=== PATIENT | female | born 1975 | race Caucasian/White ===

== ENCOUNTER 2018-07-27 18:14 | Emergency (ER) | payer BC, MEDICAID ==
[~2018-07-27] VITALS: Ht 165.1 cm; Wt 73.0 kg
[2018-07-27 19:10] VITALS: BP 135/75
--- NOTE | 2018-07-27 20:29 | PHYS DOC ---
Past Medical History Past Medical History: No Pertinent History (MIKE HOLLAND APRN) Past Surgical History: Appendectomy, Cholecystectomy, Additional Past Surgical Histo: KIDNEY STONE. (MIKE HOLLAND APRN) Alcohol Use: Rarely Drug Use: None (MIKE HOLLAND APRN) Adult General Chief Complaint Chief Complaint: MECHANICAL FALL HPI HPI Patient is a 43-year-old female who presents after falling at 10 AM this morning. Patient missed a step and fell states her balance is 5 years old patient has a history of being deaf. Has lumbar pain and sacral tenderness. Rates her pain as 8 out of 10. States that the pain just feels weird . And radiates down both her legs. Deaf expression pole shaver helper used. (MIKE HOLALND APRN) Review of Systems Review of Systems Constitutional: Denies fever or chills [] Eyes: Denies change in visual acuity, redness, or eye pain [] HENT: Denies nasal congestion or sore throat [] Respiratory: Denies cough or shortness of breath [] Cardiovascular: No additional information not addressed in HPI [] GI: Denies abdominal pain, nausea, vomiting, bloody stools or diarrhea [] : Denies dysuria or hematuria [] Musculoskeletal: Reports back pain denies joint pain [] Integument: Denies rash or skin lesions [] Neurologic: Denies headache, focal weakness. Reports sensory changes down her legs.[] Endocrine: Denies polyuria or polydipsia [] Complete systems were reviewed and found to be within normal limits, except as documented in this note. (MIKE HOLLAND APRN) Current Medications Current Medications Current Medications Medications (Trade) Dose Ordered Sig/Kang Start Time Stop Time Status Last Admin Dose Admin Morphine Sulfate (Morphine Sulfate) 10 mg 1X ONCE 07/27/18 20:30 07/27/18 20:31 DC 07/27/18 20:29 10 MG Ondansetron HCl (Zofran Odt) 4 mg 1X ONCE 07/27/18 22:00 07/27/18 22:02 DC 07/27/18 22:14 4 MG Oxycodone/ Acetaminophen (Percocet 5/325) 1 tab 1X ONCE 07/27/18 22:00 07/27/18 22:01 DC 07/27/18 22:15 1 TAB (MIKE MARTÍNEZ DO) Allergies Allergies Allergies Coded Allergies Type Severity Reaction Last Updated Verified Penicillins Allergy Intermediate 07/27/18 Yes diphenhydramine Allergy Intermediate 07/27/18 Yes (MIKE MARTÍNEZ DO) Physical Exam Physical Exam Constitutional: Well developed, well nourished, no acute distress, non-toxic appearance. [] HENT: Normocephalic, atraumatic, bilateral external ears normal, oropharynx moist, no oral exudates, nose normal. [] Eyes: PERRLA, EOMI, conjunctiva normal, no discharge. [] Neck: Normal range of motion, no tenderness, supple, no stridor. [] Cardiovascular:Heart rate regular rhythm, no murmur [] Lungs & Thorax: Bilateral breath sounds clear to auscultation [] Abdomen: Bowel sounds normal, soft, no tenderness, no masses, no pulsatile masses. [] Skin: Warm, dry, no erythema, no rash. [] Back: Lumbar and sacral point tenderness no stepoffs. Extremities: No tenderness, no cyanosis, no clubbing, ROM intact, no edema. [] Neurologic: Alert and oriented X 3, normal motor function, normal sensory function, no focal deficits noted. [] Psychologic: Affect normal, judgement normal, mood normal. [] (MIKE HOLLAND APRN) Current Patient Data Vital Signs Vital Signs Date Time Temp Pulse Resp B/P (MAP) Pulse Ox O2 Delivery O2 Flow Rate FiO2 07/27/18 22:15 18 97 07/27/18 20:29 Room Air 07/27/18 19:10 98.3 79 135/75 (95) 98.3 (MIKE MARTÍNEZ DO) EKG EKG [] (MIKE HOLLAND APRN) Radiology/Procedures Radiology/Procedures []PATIENT: AUDRA BLOOM: [id number]#: [id number] : 1975 LOCATION: ER AGE: 43 SEX: F EXAM STATUS: REG ER ORD. PHYSICIAN: MIKE HOLLAND APRN REASON: PAIN TO LOWER BACK AFTER FALL DOWN STAIRS PROCEDURE: CT LUMBAR SPINE WO CONTRAST EXAM: Pelvis CT without contrast; lumbar spine CT without contrast. HISTORY: Fall. TECHNIQUE: Computed tomographic images of the pelvis and lumbar spine were obtained without contrast. *One or more of the following individualized dose reduction techniques were utilized for this examination: 1. Automated exposure control. 2. Adjustment of the mA and/or kV according to patient size. 3. Use of iterative reconstruction technique. COMPARISON: None. FINDINGS: Pelvis: There is a mild acute anterior superior endplate compression deformity at L5. There is no retropulsion of the cortex or fracture line extension to the posterior elements at this level. No additional fracture is seen. There is a disc bulge and mild left facet arthropathy at L4-L5 and there is a disc bulge and minimal facet arthropathy at L5-S1. No severe stenosis is seen. The femoral heads are normal in configuration. There is minimal superior acetabular spurring. There is a right os acetabulum or chronic fragmented osteophyte. There is vacuum phenomenon involving the sacroiliac joints. No suspicious lytic or sclerotic osseous lesion is seen. The visualized lower abdominal and pelvic visceral and vascular structures are unremarkable. There is no lymphadenopathy. Lumbar spine: There is a moderate acute wedge compression fracture of L2 with approximately 50 percent loss of vertebral body height. There is no retropulsion of the cortex or fracture line extension to the posterior elements at this level. There is a mild acute anterior superior endplate compression deformity at L5. There is no fracture line extension to the posterior elements or retropulsion of the cortex at this level. No additional fracture is seen. There is mild retrolisthesis of L4 and L5 and L5 on S1. There is mild endplate remodeling at multiple levels. No suspicious osseous lesion is seen. There is a 3.1 cm left renal cyst. There are mild disc bulges and there is facet arthropathy at multiple levels. No moderate or severe stenosis is seen. IMPRESSION: 1. Moderate acute wedge compression fracture of L2 and mild acute anterior superior endplate compression deformity at L5. 2. Mild bilateral hip osteoarthritis and degenerative change involving the lower lumbar spine. Electronically signed by: Tatiana Weinstein MD (07/27/2018 8:56 PM) [facility] PATIENT: IRENE BLOOM ACCOUNT: [id number] : 1975 LOCATION: ER AGE: 43 SEX: F EXAM STATUS: REG ER ORD. PHYSICIAN: MIKE HOLLAND APRN REASON: PAIN TO BOTTOM AFTER FALL DOWN STAIRS PROCEDURE: CT PELVIS WO CONTRAST EXAM: Pelvis CT without contrast; lumbar spine CT without contrast. HISTORY: Fall. TECHNIQUE: Computed tomographic images of the pelvis and lumbar spine were obtained without contrast. *One or more of the following individualized dose reduction techniques were utilized for this examination: 1. Automated exposure control. 2. Adjustment of the mA and/or kV according to patient size. 3. Use of iterative reconstruction technique. COMPARISON: None. FINDINGS: Pelvis: There is a mild acute anterior superior endplate compression deformity at L5. There is no retropulsion of the cortex or fracture line extension to the posterior elements at this level. No additional fracture is seen. There is a disc bulge and mild left facet arthropathy at L4-L5 and there is a disc bulge and minimal facet arthropathy at L5-S1. No severe stenosis is seen. The femoral heads are normal in configuration. There is minimal superior acetabular spurring. There is a right os acetabulum or chronic fragmented osteophyte. There is vacuum phenomenon involving the sacroiliac joints. No suspicious lytic or sclerotic osseous lesion is seen. The visualized lower abdominal and pelvic visceral and vascular structures are unremarkable. There is no lymphadenopathy. Lumbar spine: There is a moderate acute wedge compression fracture of L2 with approximately 50 percent loss of vertebral body height. There is no retropulsion of the cortex or fracture line extension to the posterior elements at this level. There is a mild acute anterior superior endplate compression deformity at L5. There is no fracture line extension to the posterior elements or retropulsion of the cortex at this level. No additional fracture is seen. There is mild retrolisthesis of L4 and L5 and L5 on S1. There is mild endplate remodeling at multiple levels. No suspicious osseous lesion is seen. There is a 3.1 cm left renal cyst. There are mild disc bulges and there is facet arthropathy at multiple levels. No moderate or severe stenosis is seen. IMPRESSION: 1. Moderate acute wedge compression fracture of L2 and mild acute anterior superior endplate compression deformity at L5. 2. Mild bilateral hip osteoarthritis and degenerative change involving the lower lumbar spine. Electronically signed by: Tatiana Weinstein MD (07/27/2018 8:56 PM) [facility] (MIKE HOLLAND APRN) Course & Med Decision Making Course & Med Decision Making Pertinent Labs and Imaging studies reviewed. (See chart for details) Will order CT and pain medication. Patient is agreeable. Imaging shows L2 and L5 fractures. Offered admission to patient and patient declined deciding that she would rather attempt out patient management. (MIKE HOLLAND APRN) Dragon Disclaimer Dragon Disclaimer This electronic medical record was generated, in whole or in part, using a voice recognition dictation system. (MIKE HOLLAND APRN) Departure Departure Impression: Primary Impression: Lumbar compression fracture Disposition: HOME, SELF-CARE Condition: STABLE Referrals: NO PCP (PCP) EFRAIN HERNANDEZ MD Patient Instructions: Lumbar Fracture Additional Instructions: Please follow up with an Orthopedic doctor and pain management doctor as well as your primary care doctor in [place]. Take ibuprofen as needed for pain and follow the label instructions. Take Percocet for breakthrough pain. If it makes you nauseous take Ondansetron. Scripts Ondansetron (ONDANSETRON ODT) 4 Mg Tab.rapdis 1 TAB PO PRN Q6-8HRS PRN for NAUSEA, #16 TAB Prov: MIKE HOLLAND APRN 07/27/18 Oxycodone/Apap 5-325 (PERCOCET 5-325 MG TABLET ) 1 Each Tablet 1 TAB PO PRN Q6HRS PRN for PAIN, #10 TAB 0 Refills Prov: MIKE HOLLAND APRN 07/27/18 Attending Signature Attending Signature I have reviewed the PA/VOIP TECHNICIAN's note and plan of care. I was available for consultation as needed during the patient's visit in the emergency department. I agree with the clinical impression, plan, and disposition. (MIKE MARTÍNEZ DO) Problem Qualifiers Primary Impression: Lumbar compression fracture Encounter type: initial encounter Lumbar vertebra fracture level: L5 Fracture type: closed Qualified Codes: S32.050A - Wedge compression fracture of fifth lumbar vertebra, initial encounter for closed fracture MIKE HOLLAND APRN July 27, 2018 20:29 MIKE MARTÍNEZ DO July 28, 2018 05:32
[2018-07-27] MEDS ORDERED: MORPHINE SULFATE 10 MG/ML VIAL. IM ONE (20:30)
--- NOTE | 2018-07-27 20:59 | RAD ---
EXAM: Pelvis CT without contrast; lumbar spine CT without contrast. HISTORY: Fall. TECHNIQUE: Computed tomographic images of the pelvis and lumbar spine were obtained without contrast. *One or more of the following individualized dose reduction techniques were utilized for this examination: 1. Automated exposure control. 2. Adjustment of the mA and/or kV according to patient size. 3. Use of iterative reconstruction technique. COMPARISON: None. FINDINGS: Pelvis: There is a mild acute anterior superior endplate compression deformity at L5. There is no retropulsion of the cortex or fracture line extension to the posterior elements at this level. No additional fracture is seen. There is a disc bulge and mild left facet arthropathy at L4-L5 and there is a disc bulge and minimal facet arthropathy at L5-S1. No severe stenosis is seen. The femoral heads are normal in configuration. There is minimal superior acetabular spurring. There is a right os acetabulum or chronic fragmented osteophyte. There is vacuum phenomenon involving the sacroiliac joints. No suspicious lytic or sclerotic osseous lesion is seen. The visualized lower abdominal and pelvic visceral and vascular structures are unremarkable. There is no lymphadenopathy. Lumbar spine: There is a moderate acute wedge compression fracture of L2 with approximately 50 percent loss of vertebral body height. There is no retropulsion of the cortex or fracture line extension to the posterior elements at this level. There is a mild acute anterior superior endplate compression deformity at L5. There is no fracture line extension to the posterior elements or retropulsion of the cortex at this level. No additional fracture is seen. There is mild retrolisthesis of L4 and L5 and L5 on S1. There is mild endplate remodeling at multiple levels. No suspicious osseous lesion is seen. There is a 3.1 cm left renal cyst. There are mild disc bulges and there is facet arthropathy at multiple levels. No moderate or severe stenosis is seen. IMPRESSION: 1. Moderate acute wedge compression fracture of L2 and mild acute anterior superior endplate compression deformity at L5. 2. Mild bilateral hip osteoarthritis and degenerative change involving the lower lumbar spine. Electronically signed by: Tatiana Weinstein MD (07/27/2018 8:56 PM) [facility]
[2018-07-27] MEDS ORDERED: OXYC1TAB15 PO (21:58)
[2018-07-27] MEDS ORDERED: ONDA4TAB12 PO (21:58)
[2018-07-27] MEDS ORDERED: ONDANSETRON ODT 4 MG TAB.RAPDIS. PO ONE (22:00)
[2018-07-27] MEDS ORDERED: oxyCODONE/APAP 5/325 1 TAB TABLET PO ONE (22:00)
== END 2018-07-27 22:15 | disposition home or self-care (01) ==
LOC: ER 18:14
DX: S32.050A Wedge compression fracture of fifth lumbar vertebra, initial encounter for closed fracture (principal); M79.604 Pain in right leg; M79.605 Pain in left leg; Z90.89 Acquired absence of other organs; Z90.49 Acquired absence of other specified parts of digestive tract; Z87.442 Personal history of urinary calculi; Z88.0 Allergy status to penicillin; Z88.5 Allergy status to narcotic agent; W10.8XXA Fall (on) (from) other stairs and steps, initial encounter; Y93.89 Activity, other specified; Y92.89 Other specified places as the place of occurrence of the external cause; Y99.8 Other external cause status
CPT/HCPCS: 72131; 72192; 96372; 99284; J2270; Q0162

== ENCOUNTER 2018-08-03 17:29 | Inpatient (IN) | payer MEDICAID, SELFPAY ==
[~2018-08-03] VITALS: Ht 165.1 cm; Wt 73.0 kg
[~2018-08-03 17:29] MED LIST: ONDA4TAB12 PO; OXYC1TAB15 PO
[2018-08-03] MEDS ORDERED: IV NORMAL SALINE 1000ML BAG 1,000 ML IV ONE (18:30)
[2018-08-03] MEDS ORDERED: fentaNYL PF VIAL 100 MCG/2 ML VIAL IV ONE (18:30)
[2018-08-03] MEDS ORDERED: ONDANSETRON PF 4 MG/2 ML VIAL. IV ONE (18:30)
[2018-08-03 18:47] LABS: BILIRUBIN,URINE NEGATIVE (NEG); CLARITY,URINE CLEAR; COLOR,URINE YELLOW; NITRITE,URINE NEGATIVE (NEG); PROTEIN,URINE NEGATIVE (NEG-TRACE)
[2018-08-03 19:15] LABS: BACTERIA,URINE FEW /HPF (0-FEW); HYALINE CASTS, URINE MODERATE /HPF; RBC,URINE 20-40 /HPF (0-2); SQUAMOUS EPITHELIAL CELL,UR FEW /LPF; WBC,URINE OCC /HPF (0-4); YEAST,URINE PRESENT /HPF
[2018-08-03] MEDS ORDERED: MORPHINE SULFATE 4 MG/ML VIAL. ONE (20:10)
[2018-08-03] MEDS ORDERED: MORPHINE SULFATE 4 MG/ML VIAL. IV ONE ×2 (20:30→22:15)
[2018-08-03 20:39] LABS: BASO % 1 % (0-3); EOS # 0.1 x10^3/uL (0.0-0.7); EOS % 2 % (0-3); HEMATOCRIT 43.6 % (36.0-47.0); HEMOGLOBIN 14.5 g/dL (12.0-15.5); LYMPH # 1.7 x10^3/uL (1.0-4.8); LYMPH % 26 % (24-48); MEAN CORPUSCULAR HEMOGLOBIN 31 pg (25-35); MEAN CORPUSCULAR HGB CONC 33 g/dL (31-37); MEAN CORPUSCULAR VOLUME 92 fL (79-100); MONO # 0.3 x10^3/uL (0.0-1.1); MONO % 4 % (0-9); NEUT # 4.5 x10^3uL (1.8-7.7); NEUT % 68 % (31-73); PLATELET COUNT 272 x10^3/uL (140-400); RED BLOOD COUNT 4.74 x10^6/uL (3.50-5.40); RED CELL DISTRIBUTION WIDTH 14.4 % (11.5-14.5); WHITE BLOOD COUNT 6.7 x10^3/uL (4.0-11.0)
[2018-08-03 20:49] LABS: CREATININE 0.7 mg/dL (0.6-1.0); GFR 90.5; POTASSIUM 3.9 mmol/L (3.5-5.1)
[2018-08-03 20:55] LABS: ALBUMIN 3.7 g/dL (3.4-5.0); TOTAL BILIRUBIN 0.4 mg/dL (0.2-1.0); TOTAL PROTEIN 7.4 g/dL (6.4-8.2)
[2018-08-03 21:24] LABS: BARBITURATES NEG (NEG); BENZODIAZEPINES POS (NEG); CANNABINOIDS NEG (NEG); COCAINE NEG (NEG); METHADONE NEG (NEG); OPIATES POS (NEG); PHENCYCLIDINE NEG (NEG)
[2018-08-03 21:25] LABS: AMPHETAMINE/METHAMPHETAMINE NEG (NEG)
--- NOTE | 2018-08-03 22:24 | RAD ---
MRI of the lumbar spine without contrast 08/03/2018 CLINICAL HISTORY: Bowel/bladder incontinence. Lumbar compression fractures. TECHNIQUE: Unenhanced T1-weighted, T2-weighted and inversion recovery sagittal and T1-weighted and T2-weighted axial images of the lumbar spine were obtained. FINDINGS: Comparison is made to the patient's CT scan lumbar spine dated 07/27/2018. Images from the study are degraded by patient motion. Minimal S-shaped curvature of the thoracolumbar spine is seen. Acute compression fractures are again seen involving these aspect of the L2 and L5 vertebral bodies. No retropulsion of bone fragments into the central spinal canal is seen. Degenerative signal changes are seen involving the L1-2, L2-3 and L4-5 discs. Degenerative signal changes are seen within the marrow surrounding these discs. The conus medullaris is normal morphology, position, and signal characteristics. The changes of degenerative disc disease are seen on the axial images throughout the lumbar disc spaces. These consist of mild to moderate generalized disc bulges and degenerative changes involving the facet joints along with mild to moderate ligamentum flavum hypertrophy and prominence of posterior epidural fat. These findings do not result in areas of significant central spinal canal or neural foraminal stenosis. IMPRESSION: 1. Acute compression fractures are again seen involving the L2 and L5 vertebral bodies. No retropulsion of bone fragments into the central spinal canal is seen. 2. The conus medullaris is normal morphology, position, and signal characteristics. No impingement is seen. 3. The changes of degenerative disc disease are seen throughout the lumbar spine. These findings do not result in significant central spinal canal or neural foraminal stenosis. Electronically signed by: Attila Sullivan MD (08/03/2018 10:22 PM) [facility]
--- NOTE | 2018-08-03 23:29 | RAD ---
CT scan of the abdomen and pelvis without contrast 08/03/2018 CLINICAL HISTORY: History of flank pain. TECHNIQUE: Unenhanced, contiguous, 2 mm axial sections were obtained through the abdomen and pelvis. One or more of the following individualized dose reduction techniques were utilized for this study: 1. Automated exposure control. 2. Adjustment of the mA and/or kV according to patient size. 3. Use of iterative reconstruction technique. FINDINGS: Comparison study is dated 07/27/2018. Images through the lung bases demonstrate minimal dependent subsegmental atelectasis bilaterally. The liver, spleen, pancreas, and adrenal glands are within normal limits. No renal or ureteral calculus is seen. A 3.1 cm rounded low-attenuation lesion is seen involving the superior pole of the left kidney. This likely represents a cyst. Atherosclerotic calcification of the abdominal aorta is seen. The abdominal aorta tapers normally. Surgical clips are seen within the gallbladder fossa consistent with a cholecystectomy. No free fluid or free air is within the abdomen. There is no evidence of bowel obstruction. Air and stool is seen throughout the colon. Surgical clips are seen posterior to the cecum consistent with an appendectomy. Images through the pelvis demonstrate the urinary bladder distended with urine. No adnexal mass is seen. No free fluid is noted. The osseous structures are unchanged. Comminuted compression fractures of the superior aspect of the L5 and L2 vertebral bodies are again seen. IMPRESSION: No acute abnormality is seen. Electronically signed by: Attila Sullivan MD (08/03/2018 11:26 PM) [facility]
--- NOTE | 2018-08-03 23:32 | PHYS DOC ---
Past Medical History Past Medical History: Anxiety, Kidney Stone, Other Additional Past Medical Histor: BACK FX,BACK PAIN, menopause past 5yrs (DEANDRE SPENCER APRN) Past Surgical History: Appendectomy, Cholecystectomy, Additional Past Surgical Histo: KIDNEY STONE,D&C X 2 (DEANDRE SPENCER APRN) Smoking: Cigarettes, Less than 1pk/day Additional Information: 0.5 PPD Alcohol Use: Rarely Drug Use: None (DEANDRE SPENCER APRN) Adult General Chief Complaint Chief Complaint: BACK PAIN OR INJURY HPI HPI 43-year-old female presents to ER for complaints of ongoing low mid back pain- was evaluated in the ER on 07/27/18 diagnosed with L2 and L5 compression fractures. Patient reports she has had incontinence of bowel and bladder since that last ER visit. Patient states she has increased pain with walking denies inability to walk. Patient denies swelling in extremities. Patient denies u rinary symptoms, fever, or bloody stools. Pt is deaf and initial communication was with paper/pen. bead maker services were called and will send someone to ER for communication. (DEANDRE SPENCER APRN) Review of Systems Review of Systems Constitutional: Denies fever or chills [] Eyes: Denies change in visual acuity, redness, or eye pain [] HENT: Denies nasal congestion or sore throat [] Respiratory: Denies cough or shortness of breath [] Cardiovascular: No additional information not addressed in HPI [] GI: Denies abdominal pain, nausea, vomiting, bloody stools or diarrhea [] : Denies dysuria or hematuria. Reports incontinence of bowel/bladder Musculoskeletal: Denies joint pain. Reports low back pain into coccyx Integument: Denies rash or skin lesions [] Neurologic: Denies headache, focal weakness or sensory changes. Denies dizziness Endocrine: Denies polyuria or polydipsia [] All other systems were reviewed and found to be within normal limits, except as documented in this note. (DEANDRE SPENCER APRN) Current Medications Current Medications Current Medications Medications (Trade) Dose Ordered Sig/Kang Start Time Stop Time Status Last Admin Dose Admin Fentanyl Citrate (Fentanyl 2ml Vial) 50 mcg 1X ONCE 08/03/18 18:30 08/03/18 18:31 DC Lorazepam (Ativan) 2 mg STK-MED ONCE 5/14/19 21:07 08/03/18 21:08 DC Morphine Sulfate (Morphine Sulfate) 4 mg 1X ONCE 08/03/18 22:15 08/03/18 22:16 DC 08/03/18 22:40 4 MG Ondansetron HCl (Zofran) 4 mg 1X ONCE 08/03/18 18:30 08/03/18 18:31 DC Sodium Chloride 1,000 ml @ 1,000 mls/hr 1X ONCE 08/03/18 18:30 08/03/18 19:29 DC 08/03/18 20:29 1,000 MLS/HR (EDD MORALES MD) Allergies Allergies Allergies Coded Allergies Type Severity Reaction Last Updated Verified Penicillins Allergy Intermediate 07/27/18 Yes diphenhydramine Allergy Intermediate 07/27/18 Yes fentanyl Allergy Intermediate hives 08/03/18 Yes (EDD MORALES MD) Physical Exam Physical Exam Constitutional: Well developed, well nourished, no acute distress, non-toxic appearance. [] HENT: Normocephalic, atraumatic, bilateral ears normal, oropharynx moist, nose normal. [] Eyes: PERRLA, no nystagmus, conjunctiva normal, no discharge. [] Neck: Normal range of motion, no tenderness, supple, no stridor. [] Cardiovascular: Heart rate regular rhythm, no murmur [] Lungs & Thorax: Bilateral breath sounds clear to auscultation- resp. equal/nonlabored Abdomen: Bowel sounds normal, soft, no tenderness, no masses, no pulsatile masses. [] Skin: Warm, dry, no erythema, no rash. [] Back: Tender mid lumbar spine- no palp. deformity/crepitus- no skin discoloration, no CVA tenderness. [] Extremities: No tenderness, no cyanosis, no clubbing, ROM intact lateral lower and upper extremities, no edema. 2+ bilateral dorsalis pedis and posterior tibial. Neurologic: Alert and oriented X 3, normal motor function, normal sensory function, no focal deficits noted. [] Psychologic: Affect normal, judgement normal, mood anxious-no uncontrollable behavior and cooperative during exam. (FILITDEANDRE APRN) Current Patient Data Vital Signs Vital Signs Date Time Temp Pulse Resp B/P (MAP) Pulse Ox O2 Delivery O2 Flow Rate FiO2 08/03/18 22:40 22 96 08/03/18 22:13 78 124/90 (101) Room Air 08/03/18 17:39 98.2 98.2 (EDD MORALES MD) Lab Values Laboratory Tests Test 08/03/18 18:30 08/03/18 18:39 08/03/18 20:25 Urine Collection Type Unknown Urine Color Yellow Urine Clarity Clear Urine pH 6.0 Urine Specific [place] 1.020 Urine Protein Negative mg/dL (NEG-TRACE) Urine Glucose (UA) Negative mg/dL (NEG) Urine Ketones (Stick) Negative mg/dL (NEG) Urine Blood Large (NEG) Urine Nitrite Negative (NEG) Urine Bilirubin Negative (NEG) Urine Urobilinogen Dipstick 1.0 mg/dL (0.2 mg/dL) Urine Leukocyte Esterase Negative (NEG) Urine RBC 20-40 /HPF (0-2) Urine WBC Occ /HPF (0-4) Urine Squamous Epithelial Cells Few /LPF Urine Bacteria Few /HPF (0-FEW) Urine Hyaline Casts Moderate /HPF Urine Mucus Marked /LPF Urine Yeast Present /HPF Urine Opiates Screen Pos (NEG) Urine Methadone Screen Neg (NEG) Urine Barbiturates Neg (NEG) Urine Phencyclidine Screen Neg (NEG) Urine Amphetamine/Methamphetamine Neg (NEG) Urine Benzodiazepines Screen Pos (NEG) Urine Cocaine Screen Neg (NEG) Urine Cannabinoids Screen Neg (NEG) Urine Ethyl Alcohol Neg (NEG) POC Urine HCG, Qualitative Hcg negative (Negative) White Blood Count 6.7 x10^3/uL (4.0-11.0) Red Blood Count 4.74 x10^6/uL (3.50-5.40) Hemoglobin 14.5 g/dL (12.0-15.5) Hematocrit 43.6 % (36.0-47.0) Mean Corpuscular Volume 92 fL (79-100) Mean Corpuscular Hemoglobin 31 pg (25-35) Mean Corpuscular Hemoglobin Concent 33 g/dL (31-37) Red Cell Distribution Width 14.4 % (11.5-14.5) Platelet Count 272 x10^3/uL (140-400) Neutrophils (%) (Auto) 68 % (31-73) Lymphocytes (%) (Auto) 26 % (24-48) Monocytes (%) (Auto) 4 % (0-9) Eosinophils (%) (Auto) 2 % (0-3) Basophils (%) (Auto) 1 % (0-3) Neutrophils # (Auto) 4.5 x10^3uL (1.8-7.7) Lymphocytes # (Auto) 1.7 x10^3/uL (1.0-4.8) Monocytes # (Auto) 0.3 x10^3/uL (0.0-1.1) Eosinophils # (Auto) 0.1 x10^3/uL (0.0-0.7) Basophils # (Auto) 0.0 x10^3/uL (0.0-0.2) Sodium Level 143 mmol/L (136-145) Potassium Level 3.9 mmol/L (3.5-5.1) Chloride Level 106 mmol/L (98-107) Carbon Dioxide Level 26 mmol/L (21-32) Anion Gap 11 (6-14) Blood Urea Nitrogen 6 mg/dL (7-20) L Creatinine 0.7 mg/dL (0.6-1.0) Estimated GFR (Cockcroft-Gault) 90.5 BUN/Creatinine Ratio 9 (6-20) Glucose Level 107 mg/dL (70-99) H Calcium Level 10.0 mg/dL (8.5-10.1) Total Bilirubin 0.4 mg/dL (0.2-1.0) Aspartate Amino Transferase (AST) 10 U/L (15-37) L Alanine Aminotransferase (ALT) 16 U/L (14-59) Alkaline Phosphatase 76 U/L (46-116) Total Protein 7.4 g/dL (6.4-8.2) Albumin 3.7 g/dL (3.4-5.0) Albumin/Globulin Ratio 1.0 (1.0-1.7) Ethyl Alcohol Level < 10 mg/dL (0-10) Laboratory Tests 08/03/18 20:25 Laboratory Tests 08/03/18 20:25 (EDD MORALES MD) EKG EKG [] (DEANDRE SPENCER APRN) Radiology/Procedures Radiology/Procedures PROCEDURE: LUMBAR SPINE WO CONTRAST MRI of the lumbar spine without contrast 08/03/2018 CLINICAL HISTORY: Bowel/bladder incontinence. Lumbar compression fractures. TECHNIQUE: Unenhanced T1-weighted, T2-weighted and inversion recovery sagittal and T1-weighted and T2-weighted axial images of the lumbar spine were obtained. FINDINGS: Comparison is made to the patient's CT scan lumbar spine dated 07/27/2018. Images from the study are degraded by patient motion. Minimal S-shaped curvature of the thoracolumbar spine is seen. Acute compression fractures are again seen involving these aspect of the L2 and L5 vertebral bodies. No retropulsion of bone fragments into the central spinal canal is seen. Degenerative signal changes are seen involving the L1-2, L2-3 and L4-5 discs. Degenerative signal changes are seen within the marrow surrounding these discs. The conus medullaris is normal morphology, position, and signal characteristics. The changes of degenerative disc disease are seen on the axial images throughout the lumbar disc spaces. These consist of mild to moderate generalized disc bulges and degenerative changes involving the facet joints along with mild to moderate ligamentum flavum hypertrophy and prominence of posterior epidural fat. These findings do not result in areas of significant central spinal canal or neural foraminal stenosis. IMPRESSION: 1. Acute compression fractures are again seen involving the L2 and L5 vertebral bodies. No retropulsion of bone fragments into the central spinal canal is seen. 2. The conus medullaris is normal morphology, position, and signal characteristics. No impingement is seen. 3. The changes of degenerative disc disease are seen throughout the lumbar spine. These findings do not result in significant central spinal canal or neural foraminal stenosis. Electronically signed by: Attila Sullivan MD (08/03/2018 10:22 PM) [facility] DICTATED and SIGNED BY: ATTILA SULLIVAN MD DATE: 08/03/18 2222 PROCEDURE: CT ABDOMEN PELVIS WO CONTRAST CT scan of the abdomen and pelvis without contrast 08/03/2018 CLINICAL HISTORY: History of flank pain. TECHNIQUE: Unenhanced, contiguous, 2 mm axial sections were obtained through the abdomen and pelvis. One or more of the following individualized dose reduction techniques were utilized for this study: 1. Automated exposure control. 2. Adjustment of the mA and/or kV according to patient size. 3. Use of iterative reconstruction technique. FINDINGS: Comparison study is dated 07/27/2018. Images through the lung bases demonstrate minimal dependent subsegmental atelectasis bilaterally. The liver, spleen, pancreas, and adrenal glands are within normal limits. No renal or ureteral calculus is seen. A 3.1 cm rounded low-attenuation lesion is seen involving the superior pole of the left kidney. This likely represents a cyst. Atherosclerotic calcification of the abdominal aorta is seen. The abdominal aorta tapers normally. Surgical clips are seen within the gallbladder fossa consistent with a cholecystectomy. No free fluid or free air is within the abdomen. There is no evidence of bowel obstruction. Air and stool is seen throughout the colon. Surgical clips are seen posterior to the cecum consistent with an appendectomy. Images through the pelvis demonstrate the urinary bladder distended with urine. No adnexal mass is seen. No free fluid is noted. The osseous structures are unchanged. Comminuted compression fractures of the superior aspect of the L5 and L2 vertebral bodies are again seen. IMPRESSION: No acute abnormality is seen. Electronically signed by: Attila Sullivan MD (08/03/2018 11:26 PM) [facility] DICTATED and SIGNED BY: ATTILA SULLIVAN MD DATE: 08/03/182325 ([facility]authier APRN) Course & Med Decision Making Course & Med Decision Making Pertinent Labs and Imaging studies reviewed. (See chart for details) On initial exam patient reported she had had incontinence of bowel and bladder- with recent ER visit for L2 and L5 compression fractures. Patient reported intractable lower back pain and so MRI of lumbar spine was ordered to rule out cauda equina. Patient was ambulatory into the ER per RN with steady unassisted gait. 2010: Rectal exam complete- good rectal tone. Patient was able to reposition herself onto her left side. No external hemorrhoids or lesions on exam. No gross blood. Patient repositioned herself back to supine position. Patient had full range of motion of bilateral lower extremities. Patient has had no incontinence while in the ER. 0: Spoke with Dr. Huddleston regarding patient's case and admission plan. He is wanting neurosurgery spoken with prior to admission as neurosurgery will not be available eating tomorrow. Will wait for MRI results and then speak with Dr. Coles who is on-call for neurosurgery. 8: Spoke with MARY Altman with Dr. Coles, neurosurg. Discussed patient's case and MRI results- requested Dr. Coles view patient's MRI prior to being admitted to [facility] as there will be no neurosurgery coverage starting tomorrow. She will talk to Dr. Coles and call back. [id number]: Spoke with Anupama [employer] again with Dr. Coles who did view patient's MRI. Per Anupama patient can be admitted to hospitalist services as her MRI is stable and will not require neurosurgery intervention. She requested we consult Dr. Granados for evaluation of patient and to be involved with patient's care. Patient was evaluated in the ER for complaints of intractable lower back pain with reports of incontinence of bowel and bladder. It had been evaluated on 07/27 for a fall and was found to have L2 and L5 compression fractures. MRI was obtained while in the ER and no findings of central spinal canal or neural foraminal stenosis. Patient while in the ER received IV pain and anxiety medicine. Patient remained PMS intact in all extremities. Patient had good rectal tone on exam and had full range of motion of all extremities. Pt had no incontinence of bowel or bladder while in the ER. Patient did have large blood in her urine and reported history of kidney stones so did obtain CT abdomen and pelvis with no acute findings reported. She was admitted to hospitalist services for further care and monitoring. (DEANDRE SPENCER APRN) Course & Med Decision Making Staff Physician Addendum: I was working in the ER during the course of this patient's visit. I was available for consultation as needed, but I was not directly involved in the care of this patient. (EDD MORALES MD) Dragon Disclaimer Dragon Disclaimer This electronic medical record was generated, in whole or in part, using a voice recognition dictation system. (DEANDRE SPENCER APRN) Departure Departure Impression: Primary Impression: Intractable back pain Additional Impression: Lumbar compression fracture Disposition: 09 ADMITTED INPATIENT Admitting Physician: Nya Huddleston (DEANDRE SPENCER APRN) Condition: STABLE Referrals: NO PCP (PCP) Scripts Calcitonin,[place],Synthetic (CALCITONIN-SALMON) 3.7 Ml [place].pump 3.7 ML NS DAILY for lumbar fracture for 3 Days, #1 SPRAY Prov: DOTTIE TENORIO MD 08/04/18 Lorazepam (ATIVAN) 0.5 Mg Tablet 0.5 MG PO PRN Q8HRS PRN for ANXIETY / AGITATION for 6 Days, #18 TAB Prov: DOTTIE TENORIO MD 08/04/18 Oxycodone/Apap 10-325 (PERCOCET 10-325 MG TABLET ) 1 Each Tablet 1 TAB PO PRN Q4HRS PRN for PAIN for 6 Days, #36 TAB Prov: DOTTIE TENORIO MD 08/04/18 Problem Qualifiers DEANDRE SPENCER APRN August 03, 2018 23:32 EDD MORALES MD August 09, 2018 06:54
[2018-08-03 23:40] VITALS: BP 119/85
--- NOTE | 2018-08-03 23:55 | NUR ---
Report given to this RN by [facility]. Patient arrived to unit accompanied by her friend Tiffany. Patient complaint of pain is currently an 8 out of 10 in her lower back. Patient belongings left with patient. Bed was locked, put in the lowest position and call light placed within reach of patient. Will continue to monitor the patient at this time.
[2018-08-04] MEDS ORDERED: ONDANSETRON PF 4 MG/2 ML VIAL. IV PRN ×2 (00:30→00:45)
[2018-08-04] MEDS ORDERED: ACETAMINOPHEN 325 MG TABLET. PO PRN (00:30)
[2018-08-04] MEDS ORDERED: MORPHINE SULFATE 4 MG/ML VIAL. IV PRN (00:30)
[2018-08-04] MEDS: oxyCODONE/APAP 5/325 1 TAB TABLET PO PRN ×2 (01:18→09:17)
[2018-08-04] MEDS: MORPHINE SULFATE 4 MG/ML VIAL. IV PRN ×5 (02:47→17:00)
[2018-08-04 03:00] VITALS: BP 126/76
[2018-08-04 07:00] VITALS: BP 110/68
[2018-08-04] MEDS ORDERED: busPIRone 10 MG TABLET. PO PRN (07:45)
--- NOTE | 2018-08-04 08:17 | PDOC1 ---
History and Physical Date of Admission Date of Admission DATE: 08/04/18 TIME: 08:10 Identification/Chief Complaint Chief Complaint Low back pain History of Present Illness History of Present Illness Ms Watkins 43 yo F w/ PMHx Deaf, smoking Anxiety, Kidney Stone, smoker to ER for complaints of ongoing low mid back pain- was evaluated in the ER on 07/27/18 diagnosed with L2 and L5 compression fractures. Patient reports she has had incontinence of bowel and bladder since that last ER visit. Patient states she has increased pain with walking denies inability to walk. Patient denies swelling in extremities. Patient denies urinary symptoms, fever, or bloody stools. Pt is deaf and initial communication was with paper/pen. leak hunter services were called, but have not not returned today. Her pain and anxiety are not well controlled MRI confirms fracture, but does not show retropulsion of bone fragments into the central spinal canal and normal conus medullaris. Seen by PMR. She does feel better after increasing pain medications overnight and has had recommendations for TLO brace fitting by PMR, wishes to go to outpatient PT. Past Medical History Cardiovascular: No pertinent hx Pulmonary: No pertinent hx GI: No pertinent hx Heme/Onc: No pertinent hx Hepatobiliary: No pertinent hx Psych: Anxiety Rheumatologic: No pertinent hx Infectious disease: No pertinent hx ENT: No pertinent hx Renal/: No pertinent hx Endocrine: No pertinent hx Dermatology: No pertinent hx Past Surgical History Past Surgical History: No pertinent history Family History Family History: Kidney Disease Social History Smoke: <1 pack per day ALCOHOL: rare Drugs: None Current Problem List Problem List Problems Medical Problems: (1) Lumbar compression fracture Status: Acute Current Medications Current Medications Current Medications Ondansetron HCl (Zofran) 4 mg 1X ONCE IV ; Start 08/03/18 at 18:30; Stop 08/03/18 at 18:31; Status DC Fentanyl Citrate (Fentanyl 2ml Vial) 50 mcg 1X ONCE IV ; Start 08/03/18 at 18:30; Stop 08/03/18 at 18:31; Status DC Sodium Chloride 1,000 ml @ 1,000 mls/hr 1X ONCE IV Last administered on 08/03/18at 20:29; Start 08/03/18 at 18:30; Stop 08/03/18 at 19:29; Status DC Morphine Sulfate (Morphine Sulfate) 4 mg STK-MED ONCE .ROUTE ; Start 08/03/18 at 20:10; Stop 08/03/18 at 20:11; Status DC Morphine Sulfate (Morphine Sulfate) 4 mg 1X ONCE IV Last administered on 08/03/18at 20:31; Start 08/03/18 at 20:30; Stop 08/03/18 at 20:34; Status DC Lorazepam (Ativan) 0.5 mg 1X ONCE IV Last administered on 08/03/18at 21:14; Start 08/03/18 at 21:30; Stop 08/03/18 at 21:31; Status DC Lorazepam (Ativan) 2 mg STK-MED ONCE .ROUTE ; Start 08/03/18 at 21:07; Stop 08/03/18 at 21:08; Status DC Morphine Sulfate (Morphine Sulfate) 4 mg 1X ONCE IV Last administered on 08/03/18at 22:40; Start 08/03/18 at 22:15; Stop 08/03/18 at 22:16; Status DC Ondansetron HCl (Zofran) 4 mg PRN Q8HRS PRN IV NAUSEA/VOMITING 1ST CHOICE; Start 08/04/18 at 00:30; Stop 08/04/18 at 00:58; Status DC Morphine Sulfate (Morphine Sulfate) 4 mg PRN Q2HR PRN IV SEVERE PAIN; Start 08/04/18 at 00:30; Stop 08/04/18 at 00:58; Status DC Acetaminophen (Tylenol) 650 mg PRN Q4HRS PRN PO FEVER; Start 08/04/18 at 00:30; Stop 08/05/18 at 00:29 Ondansetron HCl (Zofran) 4 mg PRN Q8HRS PRN IV NAUSEA/VOMITING 1ST CHOICE; Start 08/04/18 at 00:45 Morphine Sulfate (Morphine Sulfate) 4 mg PRN Q2HR PRN IV SEVERE PAIN Last administered on 08/04/18at 06:00; Start 08/04/18 at 00:45 Oxycodone/ Acetaminophen (Percocet 5/325) 1 tab PRN Q4HRS PRN PO SEVERE PAIN Last administered on 08/04/18at 01:18; Start 08/04/18 at 00:45 Buspirone HCl (Buspar) 10 mg PRN TID PRN PO ANXIETY; Start 08/04/18 at 07:45 Active Scripts Active Ondansetron Odt (Ondansetron) 4 Mg Tab.rapdis 1 Tab PO PRN Q6-8HRS PRN Percocet 5-325 Mg Tablet (Oxycodone/Acetaminophen) 1 Each Tablet 1 Tab PO PRN Q6HRS PRN Allergies Allergies: Coded Allergies: Penicillins (Verified Allergy, Intermediate, 07/27/18) diphenhydramine (Verified Allergy, Intermediate, 07/27/18) fentanyl (Verified Allergy, Intermediate, hives, 08/03/18) Pt reports she can take morphine. ROS General: No: Chills, Night Sweats, Fatigue, Malaise, Appetite, Other PSYCHOLOGICAL ROS: YES: Anxiety; No: Behavioral Disorder, Concentration difficultie, Decreased libido, Depression, Disorientation, Hallucinations, Hostility, Irritablity, Memory difficulties, Mood Swings, Obsessive thoughts, Physical abuse, Sexual abuse, Sleep disturbances, Suicidal ideation, Other Eyes: No Blurry vision, No Decreased vision, No Double vision, No Dry eyes, No Excessive tearing, No Eye Pain, No Itchy Eyes, No Loss of vision, No Photophobia, No Scotomata, No Uses contacts, No Uses glasses, No Other HEENT: No: Heacaches, Visual Changes, Hearing change, Nasal congestion, Nasal discharge, Oral lesions, Sinus pain, Sore Throat, Epistaxis, Sneezing, Snoring, Tinnitus, Vertigo, Vocal changes, Other ALLERGY AND IMMUNOLOGY: No: Hives, Insect Bite Sensitivity, Itchy/Watery Eyes, Nasal Congestion, Post Nasal Drip, Seasonal Allergies, Other Hematological and Lymphatic: No: Bleeding Problems, Blood Clots, Blood Transfusions, Brusing, Night Sweats, Pallor, Swollen Lymph Nodes, Other ENDOCRINE: No: Breast Changes, Galactorrhea, Hair Pattern Changes, Hot Flashes, Malaise/lethargy, Mood Swings, Palpitations, Polydipsia/polyuria, Skin Changes, Temperature Intolerance, Unexpected Weight Changes, Other Breast: No New/Changing Breast Lumps, No Nipple changes, No Nipple discharge, No Other Respiratory: No: Cough, Hemoptysis, Orthopnea, Pleuritic Pain, Shortness of breath, SOB with excertion, Sputum Changes, Stridor, Tachypnea, Wheezing, Other Cardiovascular: No Chest Pain, No Palpitations, No Orthopnea, No Paroxysmal Noc. Dyspnea, No Edema, No Lt Headedness, No Other Gastrointestinal: No Nausea, No Vomiting, No Abdominal Pain, No Diarrhea, No Constipation, No Melena, No Hematochezia, No Other Genitourinary: No Dysuria, No Frequency, No Incontinence, No Hematuria, No Retention, No Discharge, No Urgency, No Pain, No Flank Pain, No Other, No , No , No , No , No , No , No Musculoskeletal: Yes Gait Disturbance, Yes Muscle Pain; No Joint Pain, No Joint Stiffness, No Joint Swelling, No Muscular Weakness, No Pain In:, No Swelling In:, No Other Neurological: No Behavorial Changes, No Bowel/Bladder ControlChng, No Confusion, No Dizziness, No Gait Disturbance, No Headaches, No Impaired Coord/balance, No Memory Loss, No Numbness/Tingling, No Seizures, No Speech Problems, No Tremors, No Visual Changes, No Weakness, No Other Skin: No Dry Skin, No Eczema, No Hair Changes, No Lumps, No Mole Changes, No Mottling, No Nail Changes, No Pruritus, No Rash, No Skin Lesion Changes, No Other, No Acne Physical Exam General: Alert, Oriented X3, Cooperative, No acute distress HEENT: Atraumatic, PERRLA, EOMI, Mucous membr. moist/pink Lungs: Clear to auscultation, Normal air movement Heart: S1S2, RRR, no gallops, no murmurs Abdomen: Normal bowel sounds, Soft, No tenderness, No hepatosplenomegaly, No masses Extremities: No clubbing, No cyanosis, No edema, Normal pulses, Other (Focal L2 and L5 tenderness) Skin: No rashes, No breakdown, No significant lesion Neuro: Normal gait, Normal speech, Strength at 5/5 X4 ext, Normal tone, Sensation intact, Cranial nerves 3-12 NL, Reflexes 2+ Psych/Mental Status: Mental status NL, Mood NL Vitals Vitals Vital Signs Date Time Temp Pulse Resp B/P (MAP) Pulse Ox O2 Delivery O2 Flow Rate FiO2 08/04/18 07:32 Room Air 08/04/18 07:00 98.1 74 18 110/68 (82) 96 98.1 Labs Labs Laboratory Tests Test 08/03/18 18:30 08/03/18 18:39 08/03/18 20:25 Urine Collection Type Unknown Urine Color Yellow Urine Clarity Clear Urine pH 6.0 Urine Specific [place] 1.020 Urine Protein Negative mg/dL (NEG-TRACE) Urine Glucose (UA) Negative mg/dL (NEG) Urine Ketones (Stick) Negative mg/dL (NEG) Urine Blood Large (NEG) Urine Nitrite Negative (NEG) Urine Bilirubin Negative (NEG) Urine Urobilinogen Dipstick 1.0 mg/dL (0.2 mg/dL) Urine Leukocyte Esterase Negative (NEG) Urine RBC 20-40 /HPF (0-2) Urine WBC Occ /HPF (0-4) Urine Squamous Epithelial Cells Few /LPF Urine Bacteria Few /HPF (0-FEW) Urine Hyaline Casts Moderate /HPF Urine Mucus Marked /LPF Urine Yeast Present /HPF Urine Opiates Screen Pos (NEG) Urine Methadone Screen Neg (NEG) Urine Barbiturates Neg (NEG) Urine Phencyclidine Screen Neg (NEG) Urine Amphetamine/Methamphetamine Neg (NEG) Urine Benzodiazepines Screen Pos (NEG) Urine Cocaine Screen Neg (NEG) Urine Cannabinoids Screen Neg (NEG) Urine Ethyl Alcohol Neg (NEG) Bedside Urine HCG, Qualitative Hcg negative (Negative) White Blood Count 6.7 x10^3/uL (4.0-11.0) Red Blood Count 4.74 x10^6/uL (3.50-5.40) Hemoglobin 14.5 g/dL (12.0-15.5) Hematocrit 43.6 % (36.0-47.0) Mean Corpuscular Volume 92 fL (79-100) Mean Corpuscular Hemoglobin 31 pg (25-35) Mean Corpuscular Hemoglobin Concent 33 g/dL (31-37) Red Cell Distribution Width 14.4 % (11.5-14.5) Platelet Count 272 x10^3/uL (140-400) Neutrophils (%) (Auto) 68 % (31-73) Lymphocytes (%) (Auto) 26 % (24-48) Monocytes (%) (Auto) 4 % (0-9) Eosinophils (%) (Auto) 2 % (0-3) Basophils (%) (Auto) 1 % (0-3) Neutrophils # (Auto) 4.5 x10^3uL (1.8-7.7) Lymphocytes # (Auto) 1.7 x10^3/uL (1.0-4.8) Monocytes # (Auto) 0.3 x10^3/uL (0.0-1.1) Eosinophils # (Auto) 0.1 x10^3/uL (0.0-0.7) Basophils # (Auto) 0.0 x10^3/uL (0.0-0.2) Sodium Level 143 mmol/L (136-145) Potassium Level 3.9 mmol/L (3.5-5.1) Chloride Level 106 mmol/L (98-107) Carbon Dioxide Level 26 mmol/L (21-32) Anion Gap 11 (6-14) Blood Urea Nitrogen 6 mg/dL (7-20) Creatinine 0.7 mg/dL (0.6-1.0) Estimated GFR (Cockcroft-Gault) 90.5 BUN/Creatinine Ratio 9 (6-20) Glucose Level 107 mg/dL (70-99) Calcium Level 10.0 mg/dL (8.5-10.1) Total Bilirubin 0.4 mg/dL (0.2-1.0) Aspartate Amino Transf (AST/SGOT) 10 U/L (15-37) Alanine Aminotransferase (ALT/SGPT) 16 U/L (14-59) Alkaline Phosphatase 76 U/L (46-116) Total Protein 7.4 g/dL (6.4-8.2) Albumin 3.7 g/dL (3.4-5.0) Albumin/Globulin Ratio 1.0 (1.0-1.7) Ethyl Alcohol Level < 10 mg/dL (0-10) Laboratory Tests Test 08/03/18 18:30 08/03/18 18:39 08/03/18 20:25 Urine Collection Type Unknown Urine Color Yellow Urine Clarity Clear Urine pH 6.0 Urine Specific [place] 1.020 Urine Protein Negative mg/dL (NEG-TRACE) Urine Glucose (UA) Negative mg/dL (NEG) Urine Ketones (Stick) Negative mg/dL (NEG) Urine Blood Large (NEG) Urine Nitrite Negative (NEG) Urine Bilirubin Negative (NEG) Urine Urobilinogen Dipstick 1.0 mg/dL (0.2 mg/dL) Urine Leukocyte Esterase Negative (NEG) Urine RBC 20-40 /HPF (0-2) Urine WBC Occ /HPF (0-4) Urine Squamous Epithelial Cells Few /LPF Urine Bacteria Few /HPF (0-FEW) Urine Hyaline Casts Moderate /HPF Urine Mucus Marked /LPF Urine Yeast Present /HPF Urine Opiates Screen Pos (NEG) Urine Methadone Screen Neg (NEG) Urine Barbiturates Neg (NEG) Urine Phencyclidine Screen Neg (NEG) Urine Amphetamine/Methamphetamine Neg (NEG) Urine Benzodiazepines Screen Pos (NEG) Urine Cocaine Screen Neg (NEG) Urine Cannabinoids Screen Neg (NEG) Urine Ethyl Alcohol Neg (NEG) Bedside Urine HCG, Qualitative Hcg negative (Negative) White Blood Count 6.7 x10^3/uL (4.0-11.0) Red Blood Count 4.74 x10^6/uL (3.50-5.40) Hemoglobin 14.5 g/dL (12.0-15.5) Hematocrit 43.6 % (36.0-47.0) Mean Corpuscular Volume 92 fL (79-100) Mean Corpuscular Hemoglobin 31 pg (25-35) Mean Corpuscular Hemoglobin Concent 33 g/dL (31-37) Red Cell Distribution Width 14.4 % (11.5-14.5) Platelet Count 272 x10^3/uL (140-400) Neutrophils (%) (Auto) 68 % (31-73) Lymphocytes (%) (Auto) 26 % (24-48) Monocytes (%) (Auto) 4 % (0-9) Eosinophils (%) (Auto) 2 % (0-3) Basophils (%) (Auto) 1 % (0-3) Neutrophils # (Auto) 4.5 x10^3uL (1.8-7.7) Lymphocytes # (Auto) 1.7 x10^3/uL (1.0-4.8) Monocytes # (Auto) 0.3 x10^3/uL (0.0-1.1) Eosinophils # (Auto) 0.1 x10^3/uL (0.0-0.7) Basophils # (Auto) 0.0 x10^3/uL (0.0-0.2) Sodium Level 143 mmol/L (136-145) Potassium Level 3.9 mmol/L (3.5-5.1) Chloride Level 106 mmol/L (98-107) Carbon Dioxide Level 26 mmol/L (21-32) Anion Gap 11 (6-14) Blood Urea Nitrogen 6 mg/dL (7-20) Creatinine 0.7 mg/dL (0.6-1.0) Estimated GFR (Cockcroft-Gault) 90.5 BUN/Creatinine Ratio 9 (6-20) Glucose Level 107 mg/dL (70-99) Calcium Level 10.0 mg/dL (8.5-10.1) Total Bilirubin 0.4 mg/dL (0.2-1.0) Aspartate Amino Transf (AST/SGOT) 10 U/L (15-37) Alanine Aminotransferase (ALT/SGPT) 16 U/L (14-59) Alkaline Phosphatase 76 U/L (46-116) Total Protein 7.4 g/dL (6.4-8.2) Albumin 3.7 g/dL (3.4-5.0) Albumin/Globulin Ratio 1.0 (1.0-1.7) Ethyl Alcohol Level < 10 mg/dL (0-10) Images Images MRI Lumbar - 1. Acute compression fractures are again seen involving the L2 and L5 vertebral bodies. No retropulsion of bone fragments into the central spinal canal is seen. 2. The conus medullaris is normal morphology, position, and signal c haracteristics. No impingement is seen. 3. The changes of degenerative disc disease are seen throughout the lumbar spine. These findings do not result in significant central spinal canal or neural foraminal stenosis. CT abdomen/pelvis - Images through the lung bases demonstrate minimal dependent subsegmental atelectasis bilaterally. The liver, spleen, pancreas, and adrenal glands are within normal limits. No renal or ureteral calculus is seen. A 3.1 cm rounded low-attenuation lesion is seen involving the superior pole of the left kidney. This likely represents a cyst. Atherosclerotic calcification of the abdominal aorta is seen. The abdominal aorta tapers normally. Surgical clips are seen within the gallbladder fossa consistent with a cholecystectomy. No free fluid or free air is within the abdomen. There is no evidence of bowel obstruction. Air and stool is seen throughout the colon. Surgical clips are seen posterior to the cecum consistent with an appendectomy. Images through the pelvis demonstrate the urinary bladder distended with urine. No adnexal mass is seen. No free fluid is noted. The osseous structures are unchanged. Comminuted compression fractures of the superior aspect of the L5 and L2 vertebral bodies are again seen. VTE Prophylaxis Ordered VTE Prophylaxis Devices: Yes VTE Pharmacological Prophylaxi: No Assessment/Plan Assessment/Plan A/P: L2 and L5 fractures - well aligned, no neurologic impingement. Not a kyphoplasty candidate. 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 Writing for now to communicate Smoking - counseled on cessation to help healing Anxiety - low dose ativan ok Kidney Stone history - none present on CT abdomen FEN - General diet PPX - SCDs FULL CODE Inpatient for intractable back pain, was concern for neurologic compromise initially, now MRI results are clear she may be able to discharge after brace fitting later today. DOTTIE TENORIO MD August 04, 2018 08:17
[2018-08-04] MEDS ORDERED: LORazepam 0.5 MG TABLET PO PRN (08:30)
[2018-08-04 11:00] VITALS: BP 121/63
[2018-08-04] MEDS ORDERED: oxyCODONE/APAP 10/325 1 TAB TABLET PO PRN (12:15)
--- NOTE | 2018-08-04 13:34 | NUR ---
SW following for discharge planning. Discussed with RN, pt is from home with cousin. SW had referral, however Dr. Wheeler denied need for SW. RN advised no SW needs, PT/OT working with pt, possible discharge home with self care today.
[2018-08-04] MEDS ORDERED: OXYC1TAB22 PO (13:38)
[2018-08-04] MEDS ORDERED: CALC3.7S5 NS (13:38)
[2018-08-04] MEDS ORDERED: LORA0.5T96 PO (13:38)
--- NOTE | 2018-08-04 13:40 | PDOC3 ---
Discharge Summary Visit Information Date of Admission: August 03, 2018 Date of Discharge: August 04, 2018 Admitting Diagnosis: Lumbar compression fractures Final Diagnosis Problems Medical Problems: (1) Lumbar compression fracture Status: Acute Brief Hospital Course Allergies Allergies Coded Allergies Type Severity Reaction Last Updated Verified Penicillins Allergy Intermediate 07/27/18 Yes diphenhydramine Allergy Intermediate 07/27/18 Yes fentanyl Allergy Intermediate hives 08/03/18 Yes Vital Signs Vital Signs Date Time Temp Pulse Resp B/P (MAP) Pulse Ox O2 Delivery O2 Flow Rate FiO2 08/04/18 12:35 Room Air 08/04/18 11:00 97.5 73 20 121/63 (82) 95 97.5 Lab Results Laboratory Tests Test 08/03/18 18:30 08/03/18 18:39 08/03/18 20:25 Urine Collection Type Unknown Urine Color Yellow Urine Clarity Clear Urine pH 6.0 Urine Specific [place] 1.020 Urine Protein Negative mg/dL (NEG-TRACE) Urine Glucose (UA) Negative mg/dL (NEG) Urine Ketones (Stick) Negative mg/dL (NEG) Urine Blood Large (NEG) Urine Nitrite Negative (NEG) Urine Bilirubin Negative (NEG) Urine Urobilinogen Dipstick 1.0 mg/dL (0.2 mg/dL) Urine Leukocyte Esterase Negative (NEG) Urine RBC 20-40 /HPF (0-2) Urine WBC Occ /HPF (0-4) Urine Squamous Epithelial Cells Few /LPF Urine Bacteria Few /HPF (0-FEW) Urine Hyaline Casts Moderate /HPF Urine Mucus Marked /LPF Urine Yeast Present /HPF Urine Opiates Screen Pos (NEG) Urine Methadone Screen Neg (NEG) Urine Barbiturates Neg (NEG) Urine Phencyclidine Screen Neg (NEG) Urine Amphetamine/Methamphetamine Neg (NEG) Urine Benzodiazepines Screen Pos (NEG) Urine Cocaine Screen Neg (NEG) Urine Cannabinoids Screen Neg (NEG) Urine Ethyl Alcohol Neg (NEG) Bedside Urine HCG, Qualitative Hcg negative (Negative) White Blood Count 6.7 x10^3/uL (4.0-11.0) Red Blood Count 4.74 x10^6/uL (3.50-5.40) Hemoglobin 14.5 g/dL (12.0-15.5) Hematocrit 43.6 % (36.0-47.0) Mean Corpuscular Volume 92 fL (79-100) Mean Corpuscular Hemoglobin 31 pg (25-35) Mean Corpuscular Hemoglobin Concent 33 g/dL (31-37) Red Cell Distribution Width 14.4 % (11.5-14.5) Platelet Count 272 x10^3/uL (140-400) Neutrophils (%) (Auto) 68 % (31-73) Lymphocytes (%) (Auto) 26 % (24-48) Monocytes (%) (Auto) 4 % (0-9) Eosinophils (%) (Auto) 2 % (0-3) Basophils (%) (Auto) 1 % (0-3) Neutrophils # (Auto) 4.5 x10^3uL (1.8-7.7) Lymphocytes # (Auto) 1.7 x10^3/uL (1.0-4.8) Monocytes # (Auto) 0.3 x10^3/uL (0.0-1.1) Eosinophils # (Auto) 0.1 x10^3/uL (0.0-0.7) Basophils # (Auto) 0.0 x10^3/uL (0.0-0.2) Sodium Level 143 mmol/L (136-145) Potassium Level 3.9 mmol/L (3.5-5.1) Chloride Level 106 mmol/L (98-107) Carbon Dioxide Level 26 mmol/L (21-32) Anion Gap 11 (6-14) Blood Urea Nitrogen 6 mg/dL (7-20) Creatinine 0.7 mg/dL (0.6-1.0) Estimated GFR (Cockcroft-Gault) 90.5 BUN/Creatinine Ratio 9 (6-20) Glucose Level 107 mg/dL (70-99) Calcium Level 10.0 mg/dL (8.5-10.1) Total Bilirubin 0.4 mg/dL (0.2-1.0) Aspartate Amino Transf (AST/SGOT) 10 U/L (15-37) Alanine Aminotransferase (ALT/SGPT) 16 U/L (14-59) Alkaline Phosphatase 76 U/L (46-116) Total Protein 7.4 g/dL (6.4-8.2) Albumin 3.7 g/dL (3.4-5.0) Albumin/Globulin Ratio 1.0 (1.0-1.7) Ethyl Alcohol Level < 10 mg/dL (0-10) Laboratory Tests Test 08/03/18 18:30 08/03/18 18:39 08/03/18 20:25 Urine Collection Type Unknown Urine Color Yellow Urine Clarity Clear Urine pH 6.0 Urine Specific [place] 1.020 Urine Protein Negative mg/dL (NEG-TRACE) Urine Glucose (UA) Negative mg/dL (NEG) Urine Ketones (Stick) Negative mg/dL (NEG) Urine Blood Large (NEG) Urine Nitrite Negative (NEG) Urine Bilirubin Negative (NEG) Urine Urobilinogen Dipstick 1.0 mg/dL (0.2 mg/dL) Urine Leukocyte Esterase Negative (NEG) Urine RBC 20-40 /HPF (0-2) Urine WBC Occ /HPF (0-4) Urine Squamous Epithelial Cells Few /LPF Urine Bacteria Few /HPF (0-FEW) Urine Hyaline Casts Moderate /HPF Urine Mucus Marked /LPF Urine Yeast Present /HPF Urine Opiates Screen Pos (NEG) Urine Methadone Screen Neg (NEG) Urine Barbiturates Neg (NEG) Urine Phencyclidine Screen Neg (NEG) Urine Amphetamine/Methamphetamine Neg (NEG) Urine Benzodiazepines Screen Pos (NEG) Urine Cocaine Screen Neg (NEG) Urine Cannabinoids Screen Neg (NEG) Urine Ethyl Alcohol Neg (NEG) Bedside Urine HCG, Qualitative Hcg negative (Negative) White Blood Count 6.7 x10^3/uL (4.0-11.0) Red Blood Count 4.74 x10^6/uL (3.50-5.40) Hemoglobin 14.5 g/dL (12.0-15.5) Hematocrit 43.6 % (36.0-47.0) Mean Corpuscular Volume 92 fL (79-100) Mean Corpuscular Hemoglobin 31 pg (25-35) Mean Corpuscular Hemoglobin Concent 33 g/dL (31-37) Red Cell Distribution Width 14.4 % (11.5-14.5) Platelet Count 272 x10^3/uL (140-400) Neutrophils (%) (Auto) 68 % (31-73) Lymphocytes (%) (Auto) 26 % (24-48) Monocytes (%) (Auto) 4 % (0-9) Eosinophils (%) (Auto) 2 % (0-3) Basophils (%) (Auto) 1 % (0-3) Neutrophils # (Auto) 4.5 x10^3uL (1.8-7.7) Lymphocytes # (Auto) 1.7 x10^3/uL (1.0-4.8) Monocytes # (Auto) 0.3 x10^3/uL (0.0-1.1) Eosinophils # (Auto) 0.1 x10^3/uL (0.0-0.7) Basophils # (Auto) 0.0 x10^3/uL (0.0-0.2) Sodium Level 143 mmol/L (136-145) Potassium Level 3.9 mmol/L (3.5-5.1) Chloride Level 106 mmol/L (98-107) Carbon Dioxide Level 26 mmol/L (21-32) Anion Gap 11 (6-14) Blood Urea Nitrogen 6 mg/dL (7-20) Creatinine 0.7 mg/dL (0.6-1.0) Estimated GFR (Cockcroft-Gault) 90.5 BUN/Creatinine Ratio 9 (6-20) Glucose Level 107 mg/dL (70-99) Calcium Level 10.0 mg/dL (8.5-10.1) Total Bilirubin 0.4 mg/dL (0.2-1.0) Aspartate Amino Transf (AST/SGOT) 10 U/L (15-37) Alanine Aminotransferase (ALT/SGPT) 16 U/L (14-59) Alkaline Phosphatase 76 U/L (46-116) Total Protein 7.4 g/dL (6.4-8.2) Albumin 3.7 g/dL (3.4-5.0) Albumin/Globulin Ratio 1.0 (1.0-1.7) Ethyl Alcohol Level < 10 mg/dL (0-10) Brief Hospital Course Ms Watkins 43 yo F w/ PMHx Deaf, smoking Anxiety, Kidney Stone, smoker to ER for complaints of ongoing low mid back pain- was evaluated in the ER on 07/27/18 diagnosed with L2 and L5 compression fractures. Patient reports she has had incontinence of bowel and bladder since that last ER visit. Patient states she has increased pain with walking denies inability to walk. Patient denies swelling in extremities. Patient denies urinary symptoms, fever, or bloody stools. Pt is deaf and initial communication was with paper/pen. staff analyst services were called, but have not not returned today. Her pain and anxiety were not well controlled on low dose percocet, better controlled on 10mg Q6 hours prn and advised her ativan should be used sparingly and not concomitantly with pain medications. MRI confirms fracture, but does not show retropulsion of bone fragments into the central spinal canal and normal conus medullaris. Seen by PMR, advised she is not a candidate for kyphoplasty. She does feel better after increasing pain medications overnight and has had recommendations for TLO brace fitting by PMR, wishes to go to outpatient PT aquatic therapy. She is on insurance in the [facility], will f/u there. A/P: L2 and L5 fractures - well aligned, no neurologic impingement. Not a kyphoplasty candidate. 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 Writing for now to communicate Smoking - counseled on cessation to help healing Anxiety - low dose ativan ok Kidney Stone history - none present on CT abdomen Greater than 145 minutes spent on same day admission and discharge. Discharge Information Condition at Discharge: Improved Follow Up: Weeks (2) Disposition/Orders: D/C to Home Scheduled Calcitonin,[place],Synthetic (Calcitonin-[place]) 3.7 Ml [place].pump, 3.7 ML NS DAILY for lumbar fracture for 3 Days, #1 Prescribed by: DOTTIE TENORIO MD on 08/04/18 1338 Scheduled PRN Lorazepam (Ativan) 0.5 Mg Tablet, 0.5 MG PO PRN Q8HRS PRN for ANXIETY / AGITATION for 6 Days, #18 Prescribed by: DOTTIE TENORIO MD on 08/04/18 1338 Ondansetron (Ondansetron Odt) 4 Mg Tab.rapdis, 1 TAB PO PRN Q6-8HRS PRN for NAUSEA, #16 Prescribed by: MIKE HOLLAND APRN on 07/27/18 2158 Oxycodone/Apap 10-325 (Percocet 10-325 Mg Tablet ) 1 Each Tablet, 1 TAB PO PRN Q4HRS PRN for PAIN for 6 Days, #36 Prescribed by: DOTTIE TENORIO MD on 08/04/18 1338 Discontinued Medications Oxycodone/Apap 5-325 (Percocet 5-325 Mg Tablet ) 1 Each Tablet, 1 TAB PO PRN Q6HRS PRN for PAIN, #10 Ref 0 Prescribed by: MIKE HOLLAND APRN on 07/27/18 2158 DOTTIE TENORIO MD August 04, 2018 13:39
[2018-08-04 15:00] VITALS: BP 114/73
--- NOTE | 2018-08-04 16:45 | NUR ---
Morphine was administered; however, [facility] was not responding; therefore, this nurse used a different workstation to re-scan both patient and medication.
--- NOTE | 2018-08-04 16:58 | NUR ---
Patient discharged from hospital via wheelchair with belongings, including back brace and 4-wheel walker, to private vehicle, in stable condition.
== END 2018-08-04 16:58 | disposition home or self-care (01) | DRG 544 ==
LOC: ER 17:29 → 4 NORTH 22:45
PROVIDERS: ADMIT Internal Medicine; ATTEND Internal Medicine
DX: M48.56XA Collapsed vertebra, not elsewhere classified, lumbar region, initial encounter for fracture (principal); H91.90 Unspecified hearing loss, unspecified ear; F17.210 Nicotine dependence, cigarettes, uncomplicated; Z87.442 Personal history of urinary calculi; M51.36 Other intervertebral disc degeneration, lumbar region; F41.9 Anxiety disorder, unspecified; Z90.49 Acquired absence of other specified parts of digestive tract; Z88.0 Allergy status to penicillin; Z88.8 Allergy status to other drugs, medicaments and biological substances
CPT/HCPCS: 36415; 72148; 74176; 80053; 80307; 81001; 81025; 85025; 96374; G0480; J2060; J2270; J7030; 97535; 99285-25

== ENCOUNTER 2021-02-06 15:19 | Emergency (ER) | payer MEDICAID ==
[~2021-02-06] VITALS: Ht 165.1 cm; Wt 73.4 kg
[~2021-02-06 15:19] MED LIST changes: +CALC3.7S5 NS; +LORA0.5T96 PO; +OXYC1TAB22 PO
--- NOTE | 2021-02-06 16:36 | PHYS DOC ---
Past Medical History Past Medical History: Anxiety, Kidney Stone, Other Additional Past Medical Histor: BACK FX,BACK PAIN, menopause past 5yrs Past Surgical History: Appendectomy, Cholecystectomy, Additional Past Surgical Histo: KIDNEY STONE,D&C X 2 Smoking Status: Current Every Day Smoker Alcohol Use: Rarely Drug Use: None General Adult EDM: Chief Complaint: ANXIETY/PANIC ATTACK HPI: HPI: Is a 45-year-old female who presents to the emergency department for chronic neck pain and panic attack. Patient reports that she is from [place] and she had a panic attack today because she attended the of a family member. Patient reports chronic neck pain that she rates 10 out of 10. She reports that she takes 2 mg of Xanax and hydrocodone 7.5 mg but cannot refill her medications until February 12. Patient has no other complaints. Patient is deaf and able to communicate by reading lips and through writing. Review of Systems: Review of Systems: 14 body systems of the review of systems have been reviewed. See HPI for pertinent positive and negative responses, otherwise all other systems are negative, nonpertinent or noncontributory Heart Score: C/O Chest Pain: N/A Risk Factors: Risk Factors: DM, Current or recent (<one month) smoker, HTN, HLP, family history of CAD, obesity. Risk Scores: Score 0 - 3: 2.5% MACE over next 6 weeks - Discharge Home Score 4 - 6: 20.3% MACE over next 6 weeks - Admit for Clinical Observation Score 7 - 10: 72.7% MACE over next 6 weeks - Early Invasive Strategies Allergies: Allergies: Allergies Coded Allergies Type Severity Reaction Last Updated Verified Penicillins Allergy Intermediate 07/27/18 Yes diphenhydramine Allergy Intermediate 07/27/18 Yes fentanyl Allergy Intermediate hives 08/03/18 Yes Physical Exam: PE: Constitutional: Well developed, well nourished, no acute distress, non-toxic appearance. [] HENT: Normocephalic, atraumatic, bilateral external ears normal, oropharynx moist, no oral exudates, nose normal. [] Eyes: PERRL, EOMI, conjunctiva normal, no discharge. [] Neck: Normal range of motion, no tenderness, supple, no stridor. [] Cardiovascular:Heart rate regular rhythm, no murmur [] Lungs & Thorax: Bilateral breath sounds clear to auscultation [] Abdomen: Bowel sounds normal, soft, no tenderness, no masses, no pulsatile masses. [] Skin: Warm, dry, no erythema, no rash. [] Back: Normal range of motion Extremities: No tenderness, no cyanosis, no clubbing, ROM intact, no edema. [] Neurologic: Alert and oriented X 3, normal motor function, normal sensory function, no focal deficits noted. [] Psychologic: Affect normal, judgement normal, mood normal. [] EKG: EKG: [] Radiology/Procedures: Radiology/Procedures: [] Course & Med Decision Making: Course & Med Decision Making Pertinent Labs and Imaging studies reviewed. (See chart for details) [] Patient presents to the emergency department for chronic neck pain and panic attack. Patient takes 2 mg of Xanax and 7.5 mg of hydrocodone at home. She reports that she is from [place] and here for a . She reports that she cannot refill her medications until February 12. Patient denies any additional complaints. Patient's anxiety will be treated with 2 mg of Xanax that she takes at home. According to [employer] [facility], patient filled 42 tablets of 7.5 [place] at [facility] 6 days ago and she also was seen in emergency department and filled 12 07/23/2024 Casper tablets on the same day. Patient will not be discharged home with any additional pain medication and she is advised to follow-up with her primary care provider. I discussed with patient all findings and diagnostic testing as well as the need to follow-up with PCP for further evaluation and treatment or return to the ER if any new or worsening symptoms. Strict return precautions were also discussed at length. Patient voiced understanding and agreement with the plan. Patient is hemodynamically stable at the time of disposition. [place] Disclaimer: Bob Disclaimer: This electronic medical record was generated, in whole or in part, using a voice recognition dictation system. Departure Departure Impression: Primary Impression: Anxiety Additional Impression: Chronic neck pain Disposition: HOME / SELF CARE / HOMELESS Condition: GOOD Referrals: NO PCP (PCP) Patient Instructions: Anxiety and Panic Attacks, Chronic Pain Additional Instructions: You were seen in the emergency department for chronic neck pain and a panic attack. You were treated with anxiety medication in the emergency department. If you are requiring any additional pain medication for your chronic pain, you will need to follow-up with your primary care provider. Return to the emergency department if you develop increased anxiety, worsening of your neck pain, any new injuries or any new or worsening concerns. EMERGENCY DEPARTMENT GENERAL DISCHARGE INSTRUCTIONS Thank you for coming to [facility] Emergency Department (ED) today and trusting us with you care. We trust that you had a positive experience in our Emergency Department. If you wish to speak to the department management, you may call the Director at [phone]. YOUR FOLLOW UP INSTRUCTIONS ARE FOLLOWS: 1. Do you have a private Doctor? If you do not have a private doctor, please ask for a resource list of physicians or clinics that may be able to assist you with follow up care. 2. The Emergency Physicain has interpreted your x-rays. The X-Ray specialist will also review them. If there is a change in the findings, you will be notified in 48 hours when at all possible. 3. A lab test or culture has been done, your results will be reviewed and you will be notified if you need a change in treatment. ADDITIONAL INSTRUCTIONS AND INFORMATION: 1. Your care today has been supervised by a physician who is specially trained in emergency care. Many problems require more than one evaluation for a complete diagnosis and treatment. We recommend that you schedule your follow up appointment as recommended to ensure complete treatment of you illness or injury. If you are unable to obtain follow up care and continue to have a problem, or if your condition worsens, we recommend that you return to the ED. 2. We are not able to safely determine your condition over the phone nor are we able to give sound medical advice over the phone. For these safety reasons, if you call for medical advice we will ask you to come to the ED for further evaluation. 3. If you have any questions regarding these discharge instructions please call the ED at [phone]. SAFETY INFORMATION: In the interest of safety, wellness, and injury prevention; we encourage you to wear your sealbelt, if you smoke; quite smoking, and we encourage family to use a protective helmet for bicycling and other sporting events that present an increased risk for head injury. IF YOUR SYMPTOMS WORSEN OR NEW SYMPTOMS DEVELOP, OR YOU HAVE CONCERNS ABOUT YOUR CONDITION; OR IF YOUR CONDITION WORSENS WHILE YOU ARE WAITING FOR YOUR FOLLOW UP APPOINTMENT; EITHER CONTACT YOUR PRIMARY CARE DOCTOR, THE PHYSICIAN WHOSE NAME AND NUMBER YOU WERE GIVEN, OR RETURN TO THE ED IMMEDIATELY. GUANACO JOHANSEN APRN Feb 06, 2021 16:36
[2021-02-06] MEDS ORDERED: ALPRAZolam 0.5 MG TABLET PO ONE (17:00)
[2021-02-06 17:25] VITALS: BP 139/94
== END 2021-02-06 17:37 | disposition home or self-care (01) ==
LOC: ER 15:19
DX: F41.9 Anxiety disorder, unspecified (principal); G89.29 Other chronic pain; M54.2 Cervicalgia; F17.200 Nicotine dependence, unspecified, uncomplicated; Z88.0 Allergy status to penicillin; Z88.4 Allergy status to anesthetic agent; Z88.5 Allergy status to narcotic agent
CPT/HCPCS: 99283

== ENCOUNTER 2021-06-29 16:47 | Emergency (ER) | payer MEDICAID ==
[~2021-06-29] VITALS: Ht 165.1 cm; Wt 73.2 kg
[2021-06-29 17:28] VITALS: BP 151/83
[2021-06-29] MEDS ORDERED: ALPRAZolam 0.5 MG TABLET PO ONE (17:45)
[2021-06-29] MEDS ORDERED: ALPR0.5T PO (18:00)
--- NOTE | 2021-06-29 18:02 | PHYS DOC ---
Past Medical History Past Medical History: Anxiety, Kidney Stone, Other Additional Past Medical Histor: BACK FX,BACK PAIN, menopause when she was 28 years old, Past Surgical History: Other Additional Past Surgical Histo: RODS IN NECK Smoking Status: Never Smoker Alcohol Use: None Drug Use: None General Adult EDM: Chief Complaint: ANXIETY/PANIC ATTACK HPI: HPI: Patient is a 46 year old female with history of anxiety, depression, states she is deaf communicates by writing presenting to the ED today complaining of an a nxiety attack that began after she got into a verbal altercation with the mother. Patient denies any suicidal homicidal ideations. She states she usually gets Xanax for anxiety and she does not have any at home. Denies any chest pain, shortness of breath. Review of Systems: Review of Systems: Constitutional: Denies fever or chills. [] Eyes: Denies change in visual acuity. [] HENT: Denies nasal congestion or sore throat. [] Respiratory: Denies cough or shortness of breath. [] Cardiovascular: Denies chest pain or edema. [] GI: Denies abdominal pain, nausea, vomiting, bloody stools or diarrhea. [] : Denies dysuria. [] Musculoskeletal: Denies back pain or joint pain. [] Integument: Denies rash. [] Neurologic: Denies headache, focal weakness or sensory changes. [] Psychiatric: Reports anxiety attack Heart Score: C/O Chest Pain: N/A Risk Factors: Risk Factors: DM, Current or recent (<one month) smoker, HTN, HLP, family history of CAD, obesity. Risk Scores: Score 0 - 3: 2.5% MACE over next 6 weeks - Discharge Home Score 4 - 6: 20.3% MACE over next 6 weeks - Admit for Clinical Observation Score 7 - 10: 72.7% MACE over next 6 weeks - Early Invasive Strategies Current Medications: Current Medications Medications (Trade) Dose Ordered Sig/Kang Start Time Stop Time Status Last Admin Dose Admin Alprazolam (Xanax) 0.5 mg 1X ONCE 06/29/21 17:45 06/29/21 17:46 DC 06/29/21 17:52 0.5 MG Allergies: Allergies: Allergies Coded Allergies Type Severity Reaction Last Updated Verified Penicillins Allergy Intermediate 02/06/21 Yes diphenhydramine Allergy Intermediate 02/06/21 Yes fentanyl Allergy Intermediate hives 02/06/21 Yes Physical Exam: PE: Constitutional: Well developed, well nourished, no acute distress, non-toxic appearance. [] HENT: Normocephalic, atraumatic, bilateral external ears normal, oropharynx moist, no oral exudates, nose normal. [] Eyes: PERRLA, EOMI, conjunctiva normal, no discharge. [] Neck: Normal range of motion, no tenderness, supple, no stridor. [] Cardiovascular:Heart rate regular rhythm, no murmur [] Lungs & Thorax: Bilateral breath sounds clear to auscultation [] Abdomen: Bowel sounds normal, soft, no tenderness, no masses, no pulsatile masses. [] Skin: Warm, dry, no erythema, no rash. [] Back: No tenderness, no CVA tenderness. [] Extremities: No tenderness, no cyanosis, no clubbing, ROM intact, no edema. [] Neurologic: Alert and oriented X 3, normal motor function, normal sensory function, no focal deficits noted. [] Psychologic: Affect normal, judgement normal, mood normal. [] Current Patient Data: Vital Signs: Vital Signs Date Time Temp Pulse Resp B/P (MAP) Pulse Ox O2 Delivery O2 Flow Rate FiO2 06/29/21 17:28 98.5 20 151/83 (105) 99 Room Air 98.5 EKG: EKG: [] Radiology/Procedures: Radiology/Procedures: [] Course & Med Decision Making: Course & Med Decision Making Pertinent Labs and Imaging studies reviewed. (See chart for details) This a 46-year-old female patient stating she is deaf and using writing for communication complaining of anxiety attack after verbal altercation with the mother. Given Xanax, discharged to home. Follow-up with [facility] Patient returned a couple minutes later stating she went to [facility] to fill her prescription for Xanax and they refused to fill it because her address is in [place]. She states she no longer lives in [place]. She is asking we send the prescription to [facility]. Informed patient I will not switch the prescription to [facility] [employer]. Informed her she needs to follow-up with her own PCP and [facility] for further assistance with her anxiety Bob Disclaimer: Bob Disclaimer: This electronic medical record was generated, in whole or in part, using a voice recognition dictation system. Departure Departure Impression: Primary Impression: Anxiety Disposition: 01 HOME / SELF CARE / HOMELESS Condition: STABLE Referrals: NO PCP (PCP) follow up with [facility] Patient Instructions: Anxiety and Panic Attacks Additional Instructions: Please follow-up with [facility] as soon as you can Scripts Alprazolam (XANAX) 0.5 Mg Tablet 1 TAB PO BID, #14 TAB Prov: CHELSIE RIBERA APRN 06/29/21 CHELSIE RIBERA APRN Jun 29, 2021 18:02
== END 2021-06-29 18:10 | disposition home or self-care (01) ==
LOC: ER 16:47
DX: F41.9 Anxiety disorder, unspecified (principal); Z88.1 Allergy status to other antibiotic agents; Z88.4 Allergy status to anesthetic agent; Z88.5 Allergy status to narcotic agent
CPT/HCPCS: 99283